=== PATIENT | male | born 1980 | race Caucasian/White ===

== ENCOUNTER → 2017-11-20 | Outpatient (CLI) | payer OTHER | LOC: ULTRA 12:15 | DX: N50.9 Disorder of male genital organs, unspecified (principal); I86.1 Scrotal varices; N43.2 Other hydrocele ==

== ENCOUNTER → 2019-04-08 | Outpatient (CLI) | payer OTHER | LOC: CAT 12:52 | DX: Z13.6 Encounter for screening for cardiovascular disorders (principal); E78.00 Pure hypercholesterolemia, unspecified; I25.10 Atherosclerotic heart disease of native coronary artery without angina pectoris ==

== ENCOUNTER → 2020-04-23 | Outpatient (CLI) | payer OTHER | LOC: LAB 14:13 | PROVIDERS: ATTEND Nurse Practitioner | DX: R50.9 Fever, unspecified (principal); R05 Cough; Z20.828 Contact with and (suspected) exposure to other viral communicable diseases ==

== ENCOUNTER → 2020-05-18 | Outpatient (CLI) | payer BC | LOC: LAB 15:11 | PROVIDERS: ATTEND Family Medicine | DX: R05 Cough (principal); Z20.828 Contact with and (suspected) exposure to other viral communicable diseases ==